=== PATIENT | male | born 1970 | race Caucasian/White ===

== ENCOUNTER 2018-01-06 09:00 | Outpatient (RCR) | payer BC | END 2018-01-28 | disposition home or self-care (01) | LOC: PTY 09:00 | DX: M54.12 Radiculopathy, cervical region (principal); M54.5 Low back pain ==

== ENCOUNTER 2018-01-31 11:00 | Outpatient (RCR) | payer BC | END 2018-02-28 | disposition home or self-care (01) | LOC: PTY 11:00 | DX: M54.12 Radiculopathy, cervical region (principal); M54.5 Low back pain ==

== ENCOUNTER 2018-03-06 10:07 | Outpatient (RCR) | payer BC | END 2018-03-30 | disposition home or self-care (01) | LOC: PTY 10:07 | DX: M54.12 Radiculopathy, cervical region (principal); M54.5 Low back pain ==